=== PATIENT | female | born 1960 | race Caucasian/White ===

== ENCOUNTER 2021-02-04 07:21 | Day surgery (SDC) | payer BC ==
[2021-02-04] MEDS ORDERED: Ringers Lactate 1,000 ML IV ONE (08:31)
[2021-02-04] MEDS ORDERED: propofoL 200 MG/20 ML VIAL IV ONE ×2 (08:34→09:15)
[2021-02-04] MEDS ORDERED: LIDOCAINE 1% MPF 30 ML VIAL ONE (08:35)
[2021-02-04] MEDS ORDERED: GLYCOPYRROLATE 0.2 MG/ML SYR ONE (08:35)
[2021-02-04 08:37] LABS: Absolute Lymphocytes (CBC) 1.3 K/uL (0.7-4.9); Basophils % 0.8 % (0-1.3); Hematocrit 39.7 % (36.0-45.0); MPV 8.7 fL (7.6-11.3)
[2021-02-04 08:50] LABS: Potassium 3.5 mmol/L (3.5-5.1)
--- NOTE | 2021-02-04 09:25 | ENDO RPT ---
[address], [address] COLONOSCOPY PROCEDURE REPORT EXAM DATE: 02/04/2021 PATIENT NAME: Radha Joshua MR #: [id number] BIRTHDATE: 1960 ATTENDING: Paul Castle M.D. STATUS: outpatient EAR FLAP BINDER: Gilma Alcocer and Marci May RN INDICATIONS: The patient is a 60 yr old Female here for a colonoscopy due to history of polyps, family history of colon cancer, and colon cancer screening PROCEDURE PERFORMED: Colonoscopy with biopsy and Colonoscopy with hot biopsy polypectomy MEDICATIONS: Per Anesthesia. ESTIMATED BLOOD LOSS: None CONSENT: The patient understands the risks and benefits of the procedure and understands that these risks include, but are not limited to: sedation, allergic reaction, infection, perforation and/or bleeding. Alternative means of evaluation and treatment include, among others: physical exam, x-rays, and/or surgical intervention. The patient elects to proceed with this endoscopic procedure. DESCRIPTION OF PROCEDURE: During intra-op preparation period all mechanical medical equipment was checked for proper function. Hand hygiene and appropriate measures for infection prevention was taken. Procedure, possible complications, alternatives including, but not limited to possibility of bleeding, perforation, tear, infection, sepsis, need for surgery, need for blood transfusion, were explained to the patient. After the risks, benefits and alternatives of the procedure were thoroughly explained, Informed consent was verified, confirmed and timeout was successfully executed by the treatment team. The patient was placed in the left lateral position. A digital rectal exam was performed and revealed no abnormalities of the rectum. After appropriate level of anesthesia, the scope was passed. The EC-[id number] ([id number]) endoscope was introduced through the anus and advanced to the cecum, which was identified by the ileocecal valve. The quality of the prep was good. The instrument was then slowly withdrawn as the colon was fully examined. Scope withdrawal time was 38 minutes. COLON FINDINGS: A polypoid shaped semi-pedunculated polyp ranging between 5-9mm in size was found. Moderate diverticulosis was noted in the sigmoid colon and descending colon. Small internal hemorrhoids were found. Retroflexed views revealed no abnormalities and Retroflexed views revealed small hemorrhoids. The scope was then completely withdrawn from the patient and the procedure terminated. ADVERSE EVENTS: There were no complications. IMPRESSIONS: Semi-pedunculated polyp ranging between 5-9mm in size was found RECOMMENDATIONS: 1. follow-up: office 1 week(s) 2. fiber rich diet 3. Monitor for any evidence of rectal bleeding. 4. increase dietary water 5. no seeds in diet RECALL: Return in 2 year(s) for Colonoscopy, pending biopsy results. Paul Castle M.D. eSigned: Paul Castle M.D. 02/04/2021 9:25 AM cc: Topher Pardo M.D. CPT CODES: ICD9 CODES: PATIENT NAME: Radha Joshua MR#: [id number]
[2021-02-04 09:46] VITALS: TEMP 97.5
[2021-02-04 09:58] VITALS: O2SAT 100
[2021-02-04 09:59] VITALS: BP 105/70
--- NOTE | 2021-02-05 11:36 | EKG ---
Test Date: 2021-02-04 Test Time: 07:08:06 Elderly Sitter: CASA MEASUREMENT RESULTS: Intervals: Rate: 56 MD: 150 QRSD: 110 QT: 448 QTc: 432 [place]: P: 30 MD: 150 QRS: 84 T: -24 INTERPRETIVE STATEMENTS: Sinus bradycardia Nonspecific ST and T wave abnormality Abnormal ECG Compared to ECG 12/20/2007 01:16:16 No significant changes Electronically Signed On 02-05-21 11:31:31 CDT by Ad Rutherford
== END 2021-02-04 10:00 | disposition home or self-care (01) ==
LOC: OR 07:21
PROVIDERS: ATTEND Surgery
PROC: 0DBK8ZX Excision of Ascending Colon, Via Natural or Artificial Opening Endoscopic, Diagnostic (ICD-10-PCS; principal; 2021-02-04 08:30)
DX: D12.2 Benign neoplasm of ascending colon (principal); Z86.010 Personal history of colon polyps; Z80.0 Family history of malignant neoplasm of digestive organs; Z20.822 Contact with and (suspected) exposure to COVID-19
CPT/HCPCS: 93005; 85025; 80048; 36415; 88305; 45384; U0003; J2704 ×2; J7120

== ENCOUNTER 2022-02-24 07:28 | Day surgery (SDC) | payer BC ==
[2022-02-20 16:27] LABS: Absolute Lymphocytes (CBC) 1.7 K/uL (0.7-4.9); Hematocrit 41.2 % (36.0-45.0); Lymphocytes % 37.5 % (15.3-44.8); MPV 7.5 fL (7.6-11.3); RBC Red Blood Cell Count 4.68 M/uL (3.86-4.86)
--- NOTE | 2022-02-20 16:28 | RAD REPORT ---
EXAM DESCRIPTION: Yecenia Berman And Dary (2 Views)02/20/2022 4:14 pm CLINICAL HISTORY: Hypertension/preop for colonoscopy COMPARISON: 2020 FINDINGS: Lungs are mildly to moderately hyperaerated. The lungs appear clear of acute infiltrate. The heart is normal size IMPRESSION: No acute abnormalities displayed
[2022-02-20 16:40] LABS: Potassium 3.6 mmol/L (3.5-5.1)
--- NOTE | 2022-02-21 10:59 | EKG ---
Test Date: 2022-02-20 Test Time: 15:56:45 Soaping Department Supervisor: LAURA MEASUREMENT RESULTS: Intervals: Rate: 66 ID: [id number] QRSD: 98 QT: 376 QTc: 394 [place]: P: 2 ID: [id number] QRS: 66 T: -34 INTERPRETIVE STATEMENTS: Normal sinus rhythm Septal infarct, age undetermined ST & T wave abnormality, consider inferolateral ischemia Abnormal ECG Compared to ECG 02/04/2021 07:08:06 Myocardial infarct finding now present Possible ischemia now present Sinus bradycardia no longer present ST (T wave) deviation still present Electronically Signed On 02-21-22 10:58:25 CDT by Ad Rutherford
[2022-02-24] MEDS ORDERED: Ringers Lactate 1,000 ML IV ONE (07:49)
[2022-02-24] MEDS ORDERED: propofoL 200 MG/20 ML VIAL IV ONE (08:30)
[2022-02-24] MEDS ORDERED: LIDOCAINE 1% MPF 5 ML VIAL ONE (08:30)
--- NOTE | 2022-02-24 09:13 | ENDO RPT ---
[address], [address] COLONOSCOPY PROCEDURE REPORT EXAM DATE: 02/24/2022 PATIENT NAME: Radha Joshua MR #: [id number] BIRTHDATE: 1960 ATTENDING: Paul Castle M.D. STATUS: outpatient STOGY ROLLER: Sparkle Yoder RN INDICATIONS: The patient is a 61 yr old Female here for a colonoscopy due to family history of colon cancer and history of polyps PROCEDURE PERFORMED: Colonoscopy MEDICATIONS: Per Anesthesia. ESTIMATED BLOOD LOSS: None CONSENT: The patient understands the risks and benefits of the procedure and understands that these risks include, but are not limited to: sedation, allergic reaction, infection, perforation and/or bleeding. Alternative means of evaluation and treatment include, among others: physical exam, x-rays, and/or surgical intervention. The patient elects to proceed with this endoscopic procedure. DESCRIPTION OF PROCEDURE: During intra-op preparation period all mechanical medical equipment was checked for proper function. Hand hygiene and appropriate measures for infection prevention was taken. Procedure, possible complications, alternatives including, but not limited to possibility of bleeding, perforation, tear, infection, sepsis, need for surgery, need for blood transfusion, were explained to the patient. After the risks, benefits and alternatives of the procedure were thoroughly explained, Informed consent was verified, confirmed and timeout was successfully executed by the treatment team. The patient was placed in the left lateral position. A digital rectal exam was performed and revealed no abnormalities of the rectum. After appropriate level of anesthesia, the scope was passed. The EC-[id number] ([id number]) and [id number] ([id number]) endoscope was introduced through the anus and advanced to the cecum, which was identified by the ileocecal valve. The quality of the prep was good. The instrument was then slowly withdrawn as the colon was fully examined. Scope withdrawal time was 33 minutes. COLON FINDINGS: Moderate diverticulosis was noted in the descending colon and sigmoid colon. Retroflexed views revealed no abnormalities. The scope was then completely withdrawn from the patient and the procedure terminated. ADVERSE EVENTS: There were no complications. IMPRESSIONS: Moderate diverticulosis was noted in the descending colon and sigmoid colon RECOMMENDATIONS: 1. follow-up: office 1 week(s) 2. fiber rich diet 3. increase dietary water 4. no seeds in diet RECALL: Return in 5 year(s) for Colonoscopy. Paul Castle M.D. eSigned: Paul Castle M.D. 02/24/2022 9:13 AM cc: Topher Pardo M.D and Brandt Kamara M.D. CPT CODES: ICD9 CODES: PATIENT NAME: Tres Jhonathanxin Weller MR#: [id number]
[2022-02-24 09:53] VITALS: TEMP 97.1; O2SAT 97
[2022-02-24 09:55] VITALS: BP 119/66
== END 2022-02-24 09:49 | disposition home or self-care (01) ==
LOC: OR 07:28
PROVIDERS: ATTEND Surgery
PROC: 0DJD8ZZ Inspection of Lower Intestinal Tract, Via Natural or Artificial Opening Endoscopic (ICD-10-PCS; principal; 2022-02-24 08:30)
DX: Z86.010 Personal history of colon polyps (principal); Z80.0 Family history of malignant neoplasm of digestive organs; Z20.822 Contact with and (suspected) exposure to COVID-19; K57.30 Diverticulosis of large intestine without perforation or abscess without bleeding
CPT/HCPCS: 93005; 85025; 80048; 36415; 71046; 45378; U0003; J2704; J7120